=== PATIENT | female | born 1940 | race Caucasian/White ===

== ENCOUNTER 2017-07-27 12:44 | Inpatient (IN) | payer MEDICARE ==
[2017-07-27] VITALS (11 sets, daily range): BP systolic 97–147; BP diastolic 50–103
[~2017-07-27] VITALS: Ht 152.4 cm; Wt 66.3 kg
[~2017-07-27 12:44] MED LIST: BUSPAR 10MG TAB10 MG PO; COMM1 XX; GABAPENTIN100 MG PO; KEFLEX750 MG PO; LEVO-T88 MCG PO; LISINOPRIL5 MG PO; Mobic7.5 MG PO; PREMARIN1.25 MG PO; WALK4 XX; ZOLPIDEM 10MG T10 MG PO
[2017-07-27 13:19] LABS: HEMOGLOBIN 13.7 g/dL (12.2-16.2); LYMPH # 2.5 K/mm3 (0.7-4.5); LYMPH % 27.9 % (10-50.0)
--- NOTE | 2017-07-27 13:31 | Emergency Room Report ---
History of Present Illness Time Seen by MD Jaeger Presenting Problem in Triage Pt arrived:Wheelchair Presenting Problem:PT REPORTS DIZZINESS X2 DAYS AND HR ELEVATED WHEN TAKING HER BP AT HOME. PT ALSO REPORTS NAUSEA Onset of symptoms date/time:07/25/17/ or onset unknown for:MEDICAL HX UNKNOWN Treatment Prior to Arrival: RN COMPLIANCE Provided by: Sepsis Risk Assessment: Temp: 98.1 B/P: 147/103 MAP: 117 Pulse: 145 Resp: 18 Recent fever? N Clinical Suspician of Infection? N Mental Status: 1 - Regular (Normal Baseline) Sepsis Risk:Low Sepsis Risk Have you (or family members/close friends) recently traveled outside the [place]? N If Yes, where/when: Have you had exposure to infectious disease within the past month? N TB? Other? Specify: 76 years old white female with history of hypothyroidism and hypertension. She is status post lumbar fusion on June, she underwent unremarkable preoperative cardiac workup before her surgery. 2 days ago, she developed dizziness and palpitation she presented to the urgent care and she was found to have irregular heartbeats. She denies having chest pain shortness of breath nausea vomiting. She denies having fever or chills she denies having excessive lower back pain. He has no weakness or numbness of the lower extremity. Source patient, RN notes reviewed, family Exam Limitations no limitations ALLERGIES Coded Allergies: Sulfa (Sulfonamide Antibiotics) (Mild, 02/16/17) Home Medications Active Scripts Device (Commode, Bedside) 1 UNIT XX UD #1 DEV Prov: 02/17/17 Device (Walker, Rolling (4-Wheel)) 1 UNIT XX UD #1 DEV Prov: 02/17/17 Reported Medications Lisinopril 5 MG PO DAILY #30 TAB Conjugated Estrogens (Premarin) 1.25 MG PO DAILY #30 Zolpidem Tartrate (Zolpidem 10MG) 10 MG PO QHS #30 Levothyroxine Sodium (Levo-T) 88 MCG PO DAILY #30 Gabapentin (Gabapentin 100MG) 100 MG PO TID #60 CAPSULE Buspirone Hcl (Buspar 10MG) 10 MG PO TID #90 TAB History Medical History General CAD? No Angina: No HI: No Hypertension? Yes Hyperlipidemia? No CHF? No DVT? No PE? No COPD? No Asthma? No Anemia? No GERD? No Gastric ulcers? No GI Bleed? No Hernia? No Thyroid Problems? Yes Hypothyroidism? Yes CVA? No Seizures? No Diabetes? No Renal Insuffiency? No End Stage Renal Disease? No UTI? No Stones? No BPH? No GB Disease: No Nephritic Syndrome? No Asplenia? No Hepatitis? No Sickle Cell Disease? No Arthritis? No Migraines? No Cataracts? No Glaucoma? No MRSA? No HIV? No TB? No Anxiety? Yes Depression? No Cancer? No More? No Immunization Hx DT/Tetanus Unknown Flu Refused Pneumonia Received In Past Surgical Hx Previous Surgery?Y APPENDECTOMY OVARIAN CYST Tubal Ligation BREAST BIPOSY X4 HYSTERECTOMY GALLBLADDER L ANKLE BACK SURGERY X4 L ANKLE FUSION Family History Family Hx Diabetes Yes CAD No Hypertension Yes Hyperlipidemia No Cancer Yes TB No Social History Smoking Hx Smoker: Never Smoker Tobacco: No Alcohol Alcohol: No Review of Systems All Other Systems Reviewed and Negative Constitutional see HPI (dizziness) Eyes no symptoms reported ENT no symptoms reported. Respiratory no symptoms reported Cardiovascular see HPI, palpitations Gastrointestinal no symptoms reported Genitourinary no symptoms reported. Musculoskeletal back pain (chronic) Skin no symptoms reported Psychiatric/Neurological no symptoms reported Physical Exam Vital Signs Vital Signs Date Time Temp Pulse Resp B/P Pulse O2 O2 Flow FiO2 Ox Delivery Rate 07/27 1343 159 15 137/85 99 07/27 1258 98.1 145 18 147/103 99 Alert oriented 3 very pleasant provided. provided full History and was cooperative for the exam. (Syd ARROYO,[facility]) - WBC >12,000 or <4,000 or 10% bands? 2 or more SIRS Criteria Met? B/P:147/103 MAP:117 Creatinine >2.0? UA output<0.5ml/kg/hr for 2 hrs? Platelet count >100,000? Lactate >2.0mmol/1? INR >1.2 or PTT > than 60 sec? Evidence of Organ Dysfunction? Provider documented clinical suspician of infection? N Sepsis Criteria Count: 1 Sepsis Risk: Low Sepsis Risk General Appearance normal appearance, WD/WN, no apparent distress, anxious Eye Exam - bilateral eye normal exam, bilateral eye PERRL, bilateral eye EOMI Ear, Nose, Throat hearing grossly normal, normal ENT inspection Neck normal inspection, non-tender, supple, full range of motion Respiratory Status Yes: trachea midline, chest symmetrical, non tender chest. No: respiratory distress. Lung Sounds bilateral: normal breath sounds, lungs clear. Cardiovascular no gallop, no JVD, no murmur, tachycardia, irregularly irregular Peripheral Pulses Pulses normal Yes Gastrointestinal normal bowel sounds, normal exam, non tender, soft, no organomegaly Back well-healed scar. Extremities non-tender, normal range of motion, normal inspection Strength 5 Upper Ext (L), 5 Upper Ext (R), 5 Lower Ext (L), 5 Lower Ext (R) Rectal normal rectal tone, hemorrhoids, painless rectal examination with external hemorrhoids normal stool. Nurse present during exam? Yes Pelvic deferred Nurse present during exam? No Neurologic alert, pecan sheller II-XII nml as tested, normal exam, oriented x 3 Reflexes Reflexes normal Yes Mental status normal mood/affect Skin intact, normal color, warm/dry Medical Decision Making LABS/Meds/Orders Pt receiving controlled substance in ED? No Results/Orders Laboratory Tests 07/27/17 1340: Stool Occult Blood Pending 07/27/17 1305: Magnesium 1.6 07/27/17 1305: TSH Pending, Free T4 Index Pending, Thyroxine (T4) Pending, T3 Uptake Pending, ESR Pending 07/27/17 1305: Sodium 137, Potassium 4.4, Chloride 100, Carbon Dioxide 28, BUN 19 H, Creatinine 1.1 H, Estimated Creat Clear 44 L, Estimated GFR (MDRD) 48 L, Glucose 100, Calcium 9.0, Total Bilirubin 0.4, AST 11 L, ALT 13, Alkaline Phosphatase 110, Creatine Kinase 25 L, CK-MB (CK-2) Rel Index 2.0, CK and CKMB Interp < 0.5, Troponin I < 0.02, Total Protein 7.5, Albumin 3.2 L, Globulin 4.3 H, Albumin/Globulin Ratio 0.7 L, PT 10.2, INR 0.94, APTT 24.7, WBC 9.0, RBC 4.31, Hgb 13.7, Hct 40.8, MCV 94.7, RDW 12.8, Plt Count 470 H, MPV 7.4, Gran % 66.9, Gran # 6.0, Lymphocytes % 27.9, Monocytes % 4.0, Eosinophils % 0.8, Basophils % 0.4, Lymphocytes # 2.5, Monocytes # 0.4, Eosinophils # 0.1, Basophils # 0.0, PUBS MCHC 33.6, MCH 31.8 H Current Medication Orders Sig/Pura Start time Last Medication Dose Route Stop Time Status Admin Diltiazem HCl 5 MG ONCE ONE 07/27 1345 DC 07/27 IV 07/27 1346 1346 Diltiazem HCl 100 MG ONCE ONE 07/27 1345 AC 07/27 Sodium Chloride 100 ML IV 07/28 0944 1346 Diltiazem HCl 0 .STK-MED ONE 07/27 1344 DC IV Sodium Chloride 100 ML .STK-MED ONE 07/27 1344 DC IV Diltiazem HCl 0 .STK-MED ONE 07/27 1343 DC IV Sodium Chloride 1,000 ML .STK-MED ONE 07/27 1316 DC IV Sodium Chloride 10 ML PRN PRN 07/27 1315 AC IV 07/28 1304 Sodium Chloride 1,000 ML .Q1H1M 07/27 1315 AC 07/27 IV 07/27 1415 1316 Sodium Chloride 10 ML PRN PRN 07/27 1315 AC IV 07/28 1306 Orders Procedure Date/time Status THYROID PANEL 2 (WITH TSH) 07/27 1331 Active STOOL OCCULT BLOOD 07/27 1331 Active MAGNESIUM 07/27 1315 Complete SED RATE 07/27 1315 Active PARTIAL THROMBOPLASTIN TIME 07/27 1306 Complete PROTHROMBIN TIME 07/27 1306 Complete ELECTROCARDIOGRAM REQUEST 07/27 1304 Active CHEST-PORTABLE 07/27 1304 Active IV SALINE LOCK 07/27 1304 Active CBC WITH AUTO DIFF 07/27 1304 Complete CARDIAC ENZYMES 07/27 1304 Complete CHEM 12 PROFILE 07/27 1304 Complete Departure Departure Time of Disposition 1352 Disposition Still a Patient Clinical Impression Primary Impression: New onset atrial fibrillation Secondary Impressions: Hypertension Condition STABLE Referrals Marce Harmon APRN (Family) Additional Instructions I discussed with the patient at length her diagnosis of knee onset atrial fibrillation the need for rate control and anticoagulation for stroke prophylaxis. She will need to be admitted and she verbalizes understanding. The patient was given 500 mL of normal saline but her heart rate remained above 130/min and she remained hypertensive. So, I started her on Cardizem drip and was given 5 mg bolus. Her rate was decreased to 107/min. I discussed with Dr Garcia who agreed with Douglas and start her on Lovenox sc. She was adnitted nancy stable condition. Dr. Velarde she was Discharge Counseling Counseled pt/family regarding diagnosis, test results, medications/RX, follow up needs ED Critical Care Critical Care No If Critical Care minutes are documented, the time involved in the performance of seperately reportable procedures was not counted toward critical care time documented. I directly delivered medical care to this critically ill and/or injured patient. Timely evaluation and treatment was necessary to address the significant organ system(s) dysfunction present in this patient. at [id number]
[2017-07-27 13:45] LABS: BUN 19 mg/dL (7-18); GFR (ESTIMATED) 48 ML/MIN (59-)
--- NOTE | 2017-07-27 13:51 | RADIOLOGY REPORT PS360 ---
CHEST-PORTABLE COMPARISON: None HISTORY: Tachycardia TECHNIQUE: Portable upright chest FINDINGS: The lung leonard are well expanded and appear clear of infiltrate. The cardiac silhouette and vascularity are normal and there is no pleural fluid. There are mild degenerative changes lower thoracic spine. IMPRESSION: Nonacute chest findings
[2017-07-27 13:52] LABS: STOOL OCCULT BLOOD NEGATIVE (NEG)
[2017-07-27 13:55] LABS: FREE THYROXIN INDEX 11.3 ug/dl (5.93-13.13)
[2017-07-28] VITALS (21 sets, daily range): BP systolic 87–118; BP diastolic 46–85
--- NOTE | 2017-07-28 07:15 | HISTORY AND PHYSICAL REPORT ---
Demographics: Admit date: 07/27/17 Chief complaint: Palpitations/nausea PRIMARY DIAGNOSIS: NEW ONSET A FIB Allergies: Coded Allergies: Sulfa (Sulfonamide Antibiotics) (Mild, 02/16/17) Uncoded Allergies: PAPER TAPE (Mild, 07/27/17) History of present illness: History of present illness: 76-year-old female who underwent lumbar spine surgery approximately a month ago presented to the emergency department after onset of nausea with mild dyspnea and sensation of palpitations. Patient was found to be in atrial fibrillation with rapid ventricular response and was admitted on a Cardizem drip. Patient remains on Cardizem drip this morning and nursing staff reports that patient's rate has dropped to the 70s at times but because her blood pressure also is decreased she has been on a very low dose of Cardizem intravenously. Patient reports persistent nausea this morning. She tells me that she has had episodes of palpitations in the past and blame them on episodes of low blood sugar. Prior to her lumbar spine surgery she underwent a normal preoperative assessment but patient has not had echocardiogram. She continues to feel nauseous. She also admits to a lot of stiffness in her back if she did not ambulate as much over the last 24 hours due to her illness. Past medical history: Family HX Family Hx Insignificant No Diabetes Yes CAD No Hypertension Yes Hyperlipidemia Yes Cancer Yes TB No Immunization HX DT/Tetanus 5-10 Years Ago Flu Refused Pneumonia Received In Past TB Test in last year Yes Result Negative General CAD? No Angina: No CT: No Hypertension? Yes Hyperlipidemia? No CHF? No DVT? No PE? No COPD? No Asthma? No Anemia? No GERD? No Gastric ulcers? No GI Bleed? No Hernia? No Thyroid Problems? Yes Hypothyroidism? Yes CVA? No Seizures? No Diabetes? No Renal Insuffiency? No UTI? No Stones? No BPH? No GB Disease: No Nephritic Syndrome? No Asplenia? No Hepatitis? No Sickle Cell Disease? No Arthritis? No Migraines? No Cataracts? Yes Glaucoma? No MRSA? No HIV? No TB? No Anxiety? Yes Depression? Yes Cancer? No More? Yes Additional hx: A FIB Past Surgical HX Previous Surgery?Y APPENDECTOMY OVARIAN CYST Tubal Ligation BREAST BIPOSY X4 HYSTERECTOMY GALLBLADDER L ANKLE BACK SURGERY X4 L ANKLE FUSION Current home meds: Active Scripts Device ([facility], Bedside) 1 UNIT XX UD #1 DEV Prov: 03/27/17 Device (Walker, Rolling (4-Wheel)) 1 UNIT XX UD #1 DEV Prov: 02/17/17 Reported Medications Lisinopril 5 MG PO DAILY #30 TAB Gabapentin (Gabapentin 100MG) 300 MG PO TID #60 CAPSULE Conjugated Estrogens (Premarin) 1.25 MG PO DAILY #30 Zolpidem Tartrate (Zolpidem 10MG) 10 MG PO QHS #30 Levothyroxine Sodium (Levo-T) 88 MCG PO DAILY #30 Buspirone Hcl (Buspar 10MG) 10 MG PO TID #90 TAB Social Hx: Smoking HX Tobacco No Are you/the child exposed to second-hand smoke: No Alcohol Alcohol: No Hx of Drug Use Drug Use? No Review of systems: Constitutional no symptoms reported. Respiratory see HPI. Cardiovascular see HPI Gastrointestinal/Abdominal see HPI Genitourinary no symptoms reported. Musculoskeletal no symptoms reported. Neurological Yes: no symptoms reported. Exam: Lab data for last 24 hours: Laboratory Tests 07/27/17 1340: Stool Occult Blood NEGATIVE 07/27/17 1305: Magnesium 1.6 07/27/17 1305: TSH 0.33 L, Free T4 Index 11.3, Thyroxine (T4) 15.6 H, T3 Uptake 29 L, ESR 47 H 07/27/17 1305: Sodium 137, Potassium 4.4, Chloride 100, Carbon Dioxide 28, BUN 19 H, Creatinine 1.1 H, Estimated Creat Clear 44 L, Estimated GFR (MDRD) 48 L, Glucose 100, Calcium 9.0, Total Bilirubin 0.4, AST 11 L, ALT 13, Alkaline Phosphatase 110, Creatine Kinase 25 L, CK-MB (CK-2) Rel Index 2.0, CK and CKMB Interp < 0.5, Troponin I < 0.02, Total Protein 7.5, Albumin 3.2 L, Globulin 4.3 H, Albumin/Globulin Ratio 0.7 L, PT 10.2, INR 0.94, APTT 24.7, WBC 9.0, RBC 4.31, Hgb 13.7, Hct 40.8, MCV 94.7, RDW 12.8, Plt Count 470 H, MPV 7.4, Gran % 66.9, Gran # 6.0, Lymphocytes % 27.9, Monocytes % 4.0, Eosinophils % 0.8, Basophils % 0.4, Lymphocytes # 2.5, Monocytes # 0.4, Eosinophils # 0.1, Basophils # 0.0, PUBS MCHC 33.6, MCH 31.8 H Admission vital signs: 1ST Vital Signs Result Date Time Pulse Ox 99 07/27 1258 B/P 147/103 07/27 1258 Temp 98.1 07/27 1258 Pulse 145 07/27 1258 Resp 18 07/27 1258 O2 Delivery ROOM AIR 07/27 1620 Exam General appearance: normal appearance, alert, awake Eyes: normal exam, anicteric ENT: normal exam, mucous membranes moist Neck: normal inspection, non-tender, no carotid bruit, no JVD Cardiovascular: irregularly irregular Respiratory: normal exam, clear to auscultation ABD: normal exam, non-distended, normal bowel sounds Extremities: normal exam Plan: Problem List 1. New onset atrial fibrillation 2. Hypertension 3. Hypothyroidism Plan: 1. Continue Cardizem drip and begin digoxin loading. Consult Dr. HAMEED. Patient is receiving Lovenox at a dose of 1 mg/kg subcu twice a day. Echocardiogram is been ordered for the morning 2. Decrease dose of level thyroxine due to mild relative hyperthyroidism. 3. I've discussed with nursing staff that I'm okay with the patient ambulating in her room and getting out of bed. Her activity level will be a little bit higher than the normal stepdown patient that because of her recent back surgery patient would like to stay as active as possible.
--- NOTE | 2017-07-28 10:36 | PHARMACY CLINIC NOTE ---
See Addendum Patient Demographics Patient Demographics Admission date: 07/27/17 Date: 07/28/17 Time: 1035 Allergies Coded Allergies: Sulfa (Sulfonamide Antibiotics) (Mild, 02/16/17) Uncoded Allergies: PAPER TAPE (Mild, 07/27/17) HEIGHT- FT: 5 IN: 0.00 K.637 VTE General Information Labs: Laboratory Tests 07/27 1305 Coagulation PT (9.4 - 11.8 SECONDS) 10.2 INR (0.9 - 1.1) 0.94 APTT (23.6 - 34.0 SECONDS) 24.7 Hematology Hgb (12.2 - 16.2 g/dL) 13.7 Hct (37.0 - 47.0 %) 40.8 Plt Count (142 - 424 K/mm3) 470 H Disclaimer The following section includes nursing documentation that has been pulled in for pharmacy review. Patient's VTE score: 2 Patient's VTE Risk: VERY LOW RISK Clinical trial participant? No VTE prophylaxis [id number] VTE prophylaxis ordered? Yes Type of prophylaxis/treatment: Lovenox at 1035
[2017-07-29] VITALS (18 sets, daily range): BP systolic 58–136; BP diastolic 30–80
--- NOTE | 2017-07-29 07:22 | ACUTE CARE PROGRESS NOTE (QUA) ---
Progress Notes Subjective Date 07/29/17 Time 0720 Note Patient had been doing well until this morning when she got out of bed and her blood pressure dropped to 50 systolic by manual blood pressure check. She felt lightheaded and weak. Patient was transferred back to bed. Her heart rate had been in the 70s and 80s but remained in atrial fibrillation. When she became lightheaded her heart rate increased to the 130s and 40s again. Patient is currently back in bed and is undergoing echocardiogram. Lightheadedness and dizziness have resolved. Patient looks well. Heart remains in atrial fibrillation. Lungs are clear. Await echocardiogram results. Patient may be candidate for cardioversion. She remains on a Cardizem drip and received intravenous digoxin yesterday. Continue Lovenox. Objective Findings Last VS-Temp:97.7 B/P:58/30 Pulse:120 Resp:18 SaO2:96 ROOM AIR Last weight lbs:145 oz:5 K.[id number] Method:Bed Scales Assessment/Plan Problem List 1. New onset atrial fibrillation 2. Hypertension 3. Hypothyroidism Patient condition Stable Plan: continue current care This inpt stay is expected to cross 2 MNs from start of care Yes at 0721
--- NOTE | 2017-07-29 09:39 | CONSULT NOTE ---
Standard Demographics Patient Demo Date of Consultation: 07/29/17 Referring Provider: Rene Garcia MD Reason for Consultation: New Onset A. fib PRIMARY DIAGNOSIS: NEW ONSET A FIB Problem list Problem list: 1. HTN 2. Lumbar spinal fusions X 3 3. History of present illness: History of present illness: 76-year-old female who underwent lumbar spine surgery approximately a month ago presented to the emergency department after onset of nausea with mild dyspnea and sensation of palpitations. Patient was found to be in atrial fibrillation with rapid ventricular response and was admitted on a Cardizem drip. Patient remains on Cardizem drip this morning and nursing staff reports that patient's rate has dropped to the 70s at times but because her blood pressure also is decreased she has been on a very low dose of Cardizem intravenously. Patient reports persistent nausea this morning. She tells me that she has had episodes of palpitations in the past and blame them on episodes of low blood sugar. Prior to her lumbar spine surgery she underwent a normal preoperative assessment but patient has not had echocardiogram. She continues to feel nauseous. She also admits to a lot of stiffness in her back if she did not ambulate as much over the last 24 hours due to her illness. The above per Dr. Garcia Currently she is in bed on low dose Cardizem gtt in NAD. Nurse relates quick BP drop into the 50's systolic with sitting up or standing with associated lightheadedness. Symptoms resolve when back in bed. EKG's show A.fib with RVR initially but now with CVR and inferior STT changes likely associated with digoxin loading. Past Medical History: General: Hypertension Yes CVA No Seizures No TB No COPD No Asthma No Diabetes No Angina No NV No Hyperlipidemia No Urinary No Cancer No Rheumatic H.D. No Ulcers No MRSA No GB Disease No Additional hx A FIB Past Surgical HX: Previous Surgery?Y APPENDECTOMY OVARIAN CYST Tubal Ligation BREAST BIPOSY X4 HYSTERECTOMY GALLBLADDER L ANKLE BACK SURGERY X4 L ANKLE FUSION Allergies Coded Allergies: Sulfa (Sulfonamide Antibiotics) (Mild, 02/16/17) Uncoded Allergies: PAPER TAPE (Mild, 07/27/17) Home medications: Active Scripts Device (Commode, Bedside) 1 UNIT XX UD #1 DEV Prov: 02/17/17 Device (Walker, Rolling (4-Wheel)) 1 UNIT XX UD #1 DEV Prov: 02/17/17 Reported Medications Lisinopril 5 MG PO DAILY #30 TAB Gabapentin (Gabapentin 100MG) 300 MG PO TID #60 CAPSULE Conjugated Estrogens (Premarin) 1.25 MG PO DAILY #30 Zolpidem Tartrate (Zolpidem 10MG) 10 MG PO QHS #30 Levothyroxine Sodium (Levo-T) 88 MCG PO DAILY #30 Buspirone Hcl (Buspar 10MG) 10 MG PO TID #90 TAB Current Medications: Current Medications Levothyroxine Sodium 0.075 MG DAILY PO Gabapentin 0 .STK-MED ONE .ROUTE (DC) Zolpidem Tartrate 0 .STK-MED ONE PO (DC) Digoxin 0.125 MG Q6 IV (DC) Patient Own Medication 1 UNIT DAILY PO Buspirone HCl 10 MG TID PO Gabapentin 300 MG TID PO Levothyroxine Sodium 0.088 MG DAILY PO (DC) Lisinopril 5 MG DAILY PO Zolpidem Tartrate 5 MG QHSP PRN PO Enoxaparin Sodium 60 MG BID SC Pantoprazole Sodium 40 MG QHS IV Diltiazem HCl 100 MG .Q20H IV Sodium Chloride 100 ML Nicotine 21 MG DAILYP PRN TD Sodium Chloride 10 ML PRN PRN IV Diltiazem HCl 100 MG ONCE ONE IV (DC) Sodium Chloride 100 ML Sodium Chloride 10 ML PRN PRN IV (DC) Sodium Chloride 10 ML PRN PRN IV (DC) Immunization HX DT/Tetanus 5-10 Years Flu Refused Pneumonia RECEIVED IN PAST TB Test in last year Yes Result Negative Family history Family HX Family Hx Insignificant No Diabetes Yes CAD No Hypertension Yes Hyperlipidemia Yes Cancer Yes TB No Social Hx: Smoking HX Tobacco No Are you/the child exposed to second-hand smoke: No Alcohol Alcohol: No Hx of Drug Use Drug Use? No Review of systems: Constitutional see HPI, weakness. Respiratory SOB with excertion. Cardiovascular palpitations Gastrointestinal/Abdominal nausea Genitourinary No: no symptoms reported. Musculoskeletal back pain. Neurological No: no symptoms reported. Exam: Admission Vital Signs: 1ST Vital Signs Result Date Time Pulse Ox 99 07/27 1258 B/P 147/103 07/27 1258 Temp 98.1 07/27 1258 Pulse 145 07/27 1258 Resp 18 07/27 1258 O2 Delivery ROOM AIR 07/27 1620 Last Vital Signs: Vital Signs Result Date Time B/P 58/30 07/29 06 Pulse 120 07/29 612 Pulse Ox 96 07/29 400 Temp 97.7 07/29 400 Resp 18 07/29 400 O2 Delivery ROOM AIR 07/29 0200 Exam General appearance: alert, awake, no acute distress Neck: no carotid bruit, no JVD Cardiovascular: irregularly irregular Respiratory: clear to auscultation ABD: soft, no tenderness Extremities: moves all, no peripheral edema Neuro: alert, intact, oriented Laboratory data: Laboratory Tests 07/27/17 1340: Stool Occult Blood NEGATIVE 07/27/17 1305: Magnesium 1.6 07/27/17 1305: TSH 0.33 L, Free T4 Index 11.3, Thyroxine (T4) 15.6 H, T3 Uptake 29 L, ESR 47 H 07/27/17 1305: Sodium 137, Potassium 4.4, Chloride 100, Carbon Dioxide 28, BUN 19 H, Creatinine 1.1 H, Estimated Creat Clear 44 L, Estimated GFR (MDRD) 48 L, Glucose 100, Calcium 9.0, Total Bilirubin 0.4, AST 11 L, ALT 13, Alkaline Phosphatase 110, Creatine Kinase 25 L, CK-MB (CK-2) Rel Index 2.0, CK and CKMB Interp < 0.5, Troponin I < 0.02, Total Protein 7.5, Albumin 3.2 L, Globulin 4.3 H, Albumin/Globulin Ratio 0.7 L, PT 10.2, INR 0.94, APTT 24.7, WBC 9.0, RBC 4.31, Hgb 13.7, Hct 40.8, MCV 94.7, RDW 12.8, Plt Count 470 H, MPV 7.4, Gran % 66.9, Gran # 6.0, Lymphocytes % 27.9, Monocytes % 4.0, Eosinophils % 0.8, Basophils % 0.4, Lymphocytes # 2.5, Monocytes # 0.4, Eosinophils # 0.1, Basophils # 0.0, PUBS MCHC 33.6, MCH 31.8 H Plan: Assessment: 1. A. fib, new onset, with RVR. Now controlled on IV diltiazem with symptomatic orthostatic hypotension. Preliminary echo shows EF between 45-55% with mild to moderate MR and LAE at 4.2 cm. 2. CKD, stage 2 3. Recent back surgery 4. Hypothyroidism, with TSH 0.33 and Free T4 11.3 Recommendations: 1. Due to symptomatic hypotension on low dose diltiazem, would recommend stopping diltiazem and using Amiodarone to try and convert to NSR. Continue Lovenox for now and switch to PO medication (Xarelto) prior to discharge. If patient doesn't convert to NSR by tomorrow, then consider ADRIEN with electrical cardioversion on . at 1009
--- NOTE | 2017-07-29 22:15 | RADIOLOGY REPORT PS360 ---
PROCEDURE: 2-D M-mode and color Doppler study INDICATIONS FOR THE TEST: Chest pain COPD Heart Murmur Tobacco Smoking Palpitations Fatigue Syncope Edema Hypertension+Diabetes Mellitus Rheumatic Fever SOB BERMAN Obesity Hyperlipidemia Family History HD Additional History PATIENT INFORMATION HEIGHT:60 WEIGHT:142 GENDER: Female B/P:99/52 2-D/M-MODE INTERPRETATION: 2-D MEASUREMENTS OBSERVED VALUES IN CMS Right Ventricular Dimension (RVDd) 2.6 Interventricular Septum (Thickness)(IVsd) 1.1 Left Ventricular Internal Dimensions(LVIDd) 4.1 Left Ventricular Posterior Wall (Thickness)(LVPWd) 0.6 Aortic Root 3.0 Aortic Cusp Separation 2.0 Left Atrial Dimensions (LAD) 4.0 2D 1. Left atrium is mildly enlarged, left ventricle is normal size, there is mild concentric left ventricular hypertrophy, visually estimated ejection fraction of 55% with no obvious regional wall motion abnormality. 2. The right atrium is mildly enlarged, the right ventricle is normal size and contractility. 3. The aortic valve is minimally thickened and fibrosed. 4. The mitral and tricuspid valve leaflets are minimally thickened. 5. The pulmonic valve is poorly visualized. 6. No significant pericardial effusion noted. DOPPLER INTERROGATION: Doppler interrogation of the aortic mitral and tricuspid valvular presence of mild mitral and moderate tricuspid regurgitation, calculated right ventricular systolic pressure 42 mmHg consistent with moderate pulmonary hypertension, diastolic parameters are inconclusive. CONCLUSION: 1. Biatrial enlargement, normal left ventricular size, mild concentric left ventricular hypertrophy, visually estimated ejection fraction approximately 50-55% with no obvious regional wall motion abnormality, diastolic parameters are inconclusive. 2. Mildly enlarged right ventricle with normal contractility. 3. Mild mitral and moderate tricuspid regurgitation, calculated right ventricular systolic pressure 42 mmHg consistent with moderate pulmonary hypertension. 4. No significant pericardial effusion noted.
[2017-07-30] VITALS (15 sets, daily range): BP systolic 97–142; BP diastolic 57–88
--- NOTE | 2017-07-30 08:33 | ACUTE CARE PROGRESS NOTE (QUA) ---
Progress Notes Subjective Date 07/30/17 Time 0831 Note Patient remains in atrial fibrillation. She has approximately 4 hours before completion of her amiodarone drip. She is in no distress. Heart rate remains irregularly irregular. Abdomen is soft. Lungs are clear. Finish amiodarone drip. He is appearing patient will need ADRIEN with cardioversion Objective Findings Last VS-Temp:97.6 B/P:120/71 Pulse:80 Resp:18 SaO2:99 ROOM AIR Last weight lbs:144 oz:3 K.402 Method:Digital Scales Assessment/Plan Problem List 1. New onset atrial fibrillation 2. Hypertension 3. Hypothyroidism Patient condition Stable Plan: continue current care This inpt stay is expected to cross 2 MNs from start of care Yes at 0832
--- NOTE | 2017-07-30 09:13 | ACUTE CARE PROGRESS NOTE (QUA) ---
Progress Notes Subjective Date 07/30/17 Time 0910 Note 76 yo WF in bed in NAD. No chest pains overnight. Disappointed that she is still in A. fib. Objective Findings Last VS-Temp:97.6 B/P:120/71 Pulse:80 Resp:18 SaO2:99 ROOM AIR Last weight lbs:144 oz:3 K.402 Method:Digital Scales Exam General appearance: alert, awake, no acute distress Cardiovascular: irregularly irregular Respiratory: clear to auscultation Extremities: moves all, no peripheral edema Neuro: alert, intact, oriented Reviewed: medications, vital signs, lab results Assessment/Plan Problem List 1. New onset atrial fibrillation 2. Hypertension 3. Hypothyroidism Patient condition Stable Plan: Transition from IV amiodarone to PO today. Will switch lovenox to Xarelto. Plan ADRIEN and possible cardioversion tomorrow. This inpt stay is expected to cross 2 MNs from start of care Yes at 0913
[2017-07-31] VITALS (20 sets, daily range): BP systolic 96–148; BP diastolic 52–94
--- NOTE | 2017-07-31 07:01 | ACUTE CARE PROGRESS NOTE (QUA) ---
Progress Notes Subjective Date 07/31/17 Time 0659 Note Patient remains in atrial fibrillation with a peak heart rate being in the 120s. Nursing staff reports this morning the patient had an episode of dizziness and nausea while she was up washing her face. Patient confirms the nurses report. She felt her heart racing as well. During this episode blood pressure remained stable and heart rate was 113 bpm. Vital signs reviewed. Patient is resting comfortably this morning. Heart has an irregularly irregular rate and rhythm. Lungs are clear. Plan for electrical cardioversion today with continued oral amiodarone. Continue anticoagulation and at discharge patient will be placed on either Xarelto or Eliquis. Objective Findings Last VS-Temp:97.5 B/P:125/73 Pulse:94 Resp:14 SaO2:97 ROOM AIR Last weight lbs:144 oz:3 K.402 Method:Digital Scales Assessment/Plan Problem List 1. New onset atrial fibrillation 2. Hypertension 3. Hypothyroidism Patient condition Stable Plan: continue current care This inpt stay is expected to cross 2 MNs from start of care Yes at 0701
[2017-07-31] MEDS ORDERED: LEVOTHYROXIN0.075 M1 PO (07:03)
--- NOTE | 2017-07-31 08:20 | ACUTE CARE PROGRESS NOTE (QUA) ---
Progress Notes Subjective Date 07/31/17 Time 0807 Note 76 yo WF in bed in NAD. Relates palpitations/rapid HR when active in the room. Review of telemetry shows A. fib with rates up to 120 bpm with BP in the 90-120' s mm Hg systolic. Objective Findings Last VS-Temp:97.5 B/P:125/73 Pulse:94 Resp:14 SaO2:97 ROOM AIR Last weight lbs:144 oz:0 K.317 Method:Bed Scales Exam General appearance: alert, awake, no acute distress Cardiovascular: irregularly irregular Respiratory: clear to auscultation Reviewed: medications, vital signs, lab results Assessment/Plan Problem List 1. New onset atrial fibrillation Assessment/Plan: Plan ADRIEN and possible cardioversion today. Continue amiodarone and Xarelto 2. Hypertension 3. Hypothyroidism Patient condition Stable Plan: See above. Recommend CT of chest to evaluate for PE in setting of recent surgery and possible etiology of new onset a.fib. This inpt stay is expected to cross 2 MNs from start of care Yes at 9514
--- NOTE | 2017-07-31 14:17 | Anesthesia Record ---
Anesthesia Record Part I Total IV fluids: 100 EBL (ml): 0 Urine Output: 0 B/P: 92/46 % SaO2: 95 Pulse: 82 Resps: 16 Temp: 97.3 Patient is: Drowsy, Nasal O2, Stable Stable to PACU at: 1410 at 1417
--- NOTE | 2017-07-31 14:18 | Anesthesia Record ---
Anesthesia Record Part II Discharge time: 1440 Destination: Second Floor PACU nurse assessment review? Yes Patient is: Stable Anesthesia complications? No at 1418
--- NOTE | 2017-07-31 16:15 | RADIOLOGY REPORT PS360 ---
Procedure: Transesophageal echocardiogram Indication for procedure: Atrial fibrillation, hypertension. Rule out left atrial appendage thrombus prior to cardioversion. Procedure: Patient was brought into the cardiac catheter lab holding area in hemodynamically stable condition, after the informed consent moderate sedation was provided by the anesthesiologist, local anesthesia was applied and transesophageal echocardiogram was performed without any difficulty, patient tolerated the procedure well. Findings: 1. The left atrium is mildly enlarged, left atrial appendage is free of thrombus, there is good appendage flow by spectral Doppler. 2. The right atrium is mildly enlarged, there is no thrombus seen in the right atrium. 3. The intra-atrial septum is intact, there is no flow across the intra-atrial septum, agitated saline contrast study fails to identify intracardiac shunt. 4. The aortic valve is minimally thickened and fibrosed. There is no aortic stenosis or aortic insufficiency. 5. The mitral valve leaflets are minimally thickened, there is mild mitral regurgitation. 6. The tricuspid valve leaflets are minimally thickened, there is moderate tricuspid regurgitation. 7. The pulmonic valve is is structurally normal. 8. The right ventricle is mildly enlarged with normal contractility. 9. The left ventricle is normal size, there is mild concentric left ventricular hypertrophy present, visually estimated ejection fraction of 55% with no obvious regional wall motion abnormality. 10. Ascending, arch and descending thoracic aorta, there is no aneurysm or dissection. 11. There is no significant pericardial effusion noted. Conclusion: 1. Mild biatrial enlargement, normal left ventricular size, mild concentric left ventricular hypertrophy, visually estimated ejection fraction of 55% with no obvious regional wall motion abnormality. 2. Mildly enlarged right ventricle with normal contractility. 3. Mild mitral and moderate tricuspid regurgitation. 4. Agitated saline contrast study fails to identify intracardiac shunt. 5. No significant endocardial effusion noted. Cardioversion: Indication: Atrial fibrillation to restore sinus rhythm Procedure: Patient was brought into cardiac catheter lab holding area, after the informed consent a transesophageal echocardiogram excluded the presence of left atrium or left atrial appendage thrombus. Subsequently patient was given general anesthesia by anesthesiologist, patient was given 250 J of synchronize DC current which rest toward the sinus rhythm. Patient tolerated the procedure well.
[2017-08-01] VITALS: BP 97/63
[2017-08-01 02:00] VITALS: BP 95/59
[2017-08-01 04:00] VITALS: BP 108/69
--- NOTE | 2017-08-01 07:17 | ACUTE CARE PROGRESS NOTE (QUA) ---
Progress Notes Subjective Date 08/01/17 Time 0716 Note Patient underwent successful cardioversion yesterday and remains in sinus rhythm this morning. She denies palpitations, shortness of breath, lightheadedness, nausea. She appears well. Heart has a regular rate and rhythm. Discharged home today. Continue amiodarone and Xarelto. Follow-up with Dr. HAMEED next week Objective Findings Last VS-Temp:98.1 B/P:108/69 Pulse:73 Resp:16 SaO2:95 ROOM AIR Last weight lbs:146 oz:1 K.253 Method:Bed Scales Assessment/Plan Problem List 1. New onset atrial fibrillation 2. Hypertension 3. Hypothyroidism Patient condition Improving Plan: initiate discharge plan This inpt stay is expected to cross 2 MNs from start of care Yes at 0717
--- NOTE | 2017-08-01 07:19 | Discharge Summary ---
Demographics Admit date: 07/27/17 Discharge date: 08/01/17 Discharge diagnoses Problem List 1. New onset atrial fibrillation 2. Hypertension 3. Hypothyroidism History of present illness History of present illness 76-year-old female who underwent lumbar spine surgery approximately a month ago presented to the emergency department after onset of nausea with mild dyspnea and sensation of palpitations. Patient was found to be in atrial fibrillation with rapid ventricular response and was admitted on a Cardizem drip. Patient remains on Cardizem drip this morning and nursing staff reports that patient's rate has dropped to the 70s at times but because her blood pressure also is decreased she has been on a very low dose of Cardizem intravenously. Patient reports persistent nausea this morning. She tells me that she has had episodes of palpitations in the past and blame them on episodes of low blood sugar. Prior to her lumbar spine surgery she underwent a normal preoperative assessment but patient has not had echocardiogram. She continues to feel nauseous. She also admits to a lot of stiffness in her back if she did not ambulate as much over the last 24 hours due to her illness. Patient was admitted and placed on Cardizem drip. All this brought her rate down she remained in atrial fibrillation and she developed symptoms of hypotension while on the Cardizem drip. Digoxin was added but did not provide any benefit in heart rate control. She remained on low-dose Cardizem drip until July 29. At that point patient was placed on amiodarone drip in attempt to convert to sinus rhythm. This was also unsuccessful. Amiodarone was started under the supervision of cardiology service. When amiodarone drip was unsuccessful patient was transitioned to oral amiodarone with plans for transesophageal echocardiogram and electrical cardioversion. Patient underwent successful cardioversion on July 31. She will remain on anticoagulant (Xarelto) and amiodarone 400 mg twice a day. Patient will follow-up with Dr. HAMEED next week and follow-up with me in 2 weeks. Medications Medications: Discharge meds are as noted. Follow up Follow up in office in: 7 DAYS with: ZARI MCGUIRE MD at 0956
[2017-08-01] MEDS ORDERED: XARELTO20 MG PO (07:20)
[2017-08-01] MEDS ORDERED: PACERONE400 MG PO (07:21)
--- NOTE | 2017-08-01 07:38 | ACUTE CARE PROGRESS NOTE (QUA) ---
Progress Notes Subjective Date 08/01/17 Time 0732 Note 76 yo WF in bed in NAD. States she feels much better since cardioversion. Ready to go home. Objective Findings Last VS-Temp:98.1 B/P:108/69 Pulse:73 Resp:16 SaO2:95 ROOM AIR Last weight lbs:146 oz:1 K.253 Method:Bed Scales Exam General appearance: alert, awake, no acute distress Cardiovascular: regular rate & rhythm, no murmur Respiratory: clear to auscultation Extremities: moves all, no peripheral edema Neuro: alert, intact, oriented Reviewed: medications, vital signs, lab results Assessment/Plan Problem List 1. New onset atrial fibrillation Assessment/Plan: Etiology unknown. ADRIEN without intracardiac thrombus. Successfully cardioverted to NSR. Telemetry this AM shows NSR with CVR. On Amiodarone and Xarelto. Ok for discharge home. Follow up in one week to reduce amiodarone dosage. CTA of chest reportedly negative for PE, official report not in system. 2. Hypertension 3. Hypothyroidism Patient condition Stable Plan: See above. This inpt stay is expected to cross 2 MNs from start of care Yes at 0737
[2017-08-01 07:40] VITALS: BP 108/69; BP 125/72
--- NOTE | 2017-08-01 10:08 | RADIOLOGY REPORT PS360 ---
CTA-CHEST HISTORY: Chest pain, recent cardioversion and lumbar spine surgery NEW ONSET OF A FIB ORDERING PHYSICIAN: Rene Garcia MD PATIENT AGE: 76 years TECHNIQUE: Helical acquisition obtained following the bolus administration of 60 mL of Isovue 370 followed by a saline bolus. Axial, sagittal, and coronal reformatted images are generated and reviewed. COMPARISON: None FINDINGS: No evidence of pulmonary embolus or aortic aneurysm or dissection. Normal heart size. No pericardial effusion. There is calcified granuloma in the right lower lobe superior segment. Minimal atelectatic or fibrotic changes are present in the left lung base. 2 mm nodule present in the right lung base posteriorly. No suspicious nodules evident. No effusions or infiltrates. There is a 3 mm nodule in the posterior lateral aspect of the right lower lobe. Upper abdominal images are unremarkable. No acute bony anomalies. There is osteosclerosis involving endplates at T7-T8. IMPRESSION: 1. No acute finding. No evidence of acute pulmonary embolus or aortic aneurysm or dissection. 2. There are at least 2 small nodules in 2 to 3 mm in the right lower lobe too small to categorize.
== END 2017-08-01 10:05 | disposition home or self-care (01) | DRG 310 ==
LOC: UTC 12:44 → ER 12:48 → 2ND 13:55 → ER 13:55 → 2ND 14:35 → ICU 16:02 → 2ND 16:03 → ICU 07-29 18:01 → 2ND 07-30 13:11
PROVIDERS: Emergency Medicine; Internal Medicine Cardiovascular Disease
PROC: B246ZZ4 Ultrasonography of Right and Left Heart, Transesophageal (ICD-10-PCS; principal; 2017-07-31 12:00)
PROC: 5A2204Z Restoration of Cardiac Rhythm, Single (ICD-10-PCS; principal; 2017-07-31 12:00)
DX: I48.91 Unspecified atrial fibrillation (principal); I10 Essential (primary) hypertension; E03.9 Hypothyroidism, unspecified
CPT/HCPCS: G0328; G0463; J0282; J7060; Q9967

== ENCOUNTER → 2017-08-14 | Outpatient (CLI) | payer MEDICARE ==
[~2017-08-14] MED LIST changes: +LEVOTHYROXIN0.075 M1 PO; +PACERONE400 MG PO; +XARELTO20 MG PO
--- NOTE | 2017-08-14 15:39 | RADIOLOGY REPORT PS360 ---
History and Indications: Hypertension, family history, palpitations, fatigue and abnormal EKG Procedure: Patient received a 0.4 mg of Lexiscan, resting heart rate was 63 bpm, resting blood pressure 135/75, Lexiscan maximum heart rate achieved was 82 bpm is less than 85% of the maximum predicted heart rate, and the blood pressure was 116/62. The CT scan patient complained of headache. Electrocardiogram: Resting electrocardiogram showed sinus rhythm rightward axis, with Lexiscan there is less than 1.[address] segment depression noted from the baseline EKG. The EKG portion of the Lexiscan is nondiagnostic. Cardiac stress and resting SPECT images: Cardiac stress and resting SPECT images were obtained using technetium 99 Myoview 10.4 mCi at rest and 32.2 mCi at stress, gated SPECT further analysis of segmental wall motion and calculation of the ejection fraction also done. Cardiac stress and rest SPECT images show a mild fixed defect in the anterior wall with normal contractility in the gated SPECT is likely secondary to soft tissue attenuation, no reversible ischemia seen. Computer derived ejection fraction is over 65% with no obvious regional wall motion abnormality, right ventricle is normal size and contractility. Conclusion: 1. The EKG portion of the Lexiscan Myoview is nondiagnostic. 2. No obvious scintigraphic evidence of reversible ischemia seen, either derived ejection fraction is over 65% with no obvious regional wall motion abnormality, right ventricle is normal size and contractility.
== END ==
LOC: RAD 06:07
DX: I48.0 Paroxysmal atrial fibrillation (principal); I10 Essential (primary) hypertension; I27.0 Primary pulmonary hypertension; I65.23 Occlusion and stenosis of bilateral carotid arteries; I51.7 Cardiomegaly; R06.02 Shortness of breath
CPT/HCPCS: A9502; J2785

== ENCOUNTER → 2017-08-27 | Outpatient (CLI) | payer MEDICARE ==
--- NOTE | 2017-08-27 08:30 | CARDIOVASCULAR REPORT ---
"Cerebrovascular Exam Indications: Follow-up carotid 433.10. IMPRESSIONS 1. The bilateral vertebral arteries are patent with normal antegrade flow. 2. Study suggests 20-49% stenosis involving the right internal carotid artery and the left internal carotid artery. No change from the study of November 2014. History: Risk factors: Hypertension. Carotid duplex study. Complete study and Doppler flow study including spectral analysis, color and kuhn scale imaging. Height: Height: 154.9cm. Height: 61in. Weight: Weight: 65.3kg. Weight: 143.7lb. Body mass index: BMI: 27.2kg/m^2. Body surface area: BSA: 1.7m^2. Location: Vascular laboratory. Patient status: Outpatient. Tables: Arterial flow: + +--------+--------+ |Location |V sys |V ed | + +--------+--------+ |Right CCA - proximal|94.3cm/s|24.4cm/s| + +--------+--------+ |Right CCA - distal |89.4cm/s|27.2cm/s| + +--------+--------+ |Right ECA |114cm/s |--------| + +--------+--------+ |Right ICA - proximal|82.4cm/s|23cm/s | + +--------+--------+ |Right ICA - mid |92.2cm/s|34.9cm/s| + +--------+--------+ |Right ICA - distal |133cm/s |48.9cm/s| + +--------+--------+ |Right vertebral |52.4cm/s|--------| + +--------+--------+ |Left CCA - proximal |147cm/s |41cm/s | + +--------+--------+ |Left CCA - distal |107cm/s |37.5cm/s| + +--------+--------+ |Left ECA |92.5cm/s|--------| + +--------+--------+ |Left ICA - proximal |59.6cm/s|21cm/s | + +--------+--------+ |Left ICA - mid |106cm/s |42.7cm/s| + +--------+--------+ |Left ICA - distal |83.2cm/s|32.1cm/s| + +--------+--------+ |Left vertebral |61.6cm/s|--------| + +--------+--------+ Velocity ratios: + + + + + + | |Right, V sys|Right, V ed|Left, V sys|Left, V ed| + + + + + + |Max ICA/dist CCA|1.49 |1.8 |0.99 |1.14 | + + + + + + (Report amended ) Electronically signed by: eNil Davila [id number]"
== END ==
LOC: RT 07:45
DX: I65.23 Occlusion and stenosis of bilateral carotid arteries (principal); I48.91 Unspecified atrial fibrillation; I27.0 Primary pulmonary hypertension